=== PATIENT | female | born 1945 | race Two or more races ===

== ENCOUNTER 2017-12-28 08:30 | Outpatient (CLI) | payer OTHER ==
[~2017-12-28 08:30] MED LIST: SYNTHROID100 MCG PO; SYNTHROID75 MCG PO
== END 2017-12-28 09:07 | disposition home or self-care (01) ==
LOC: SONOGRAMA 08:30 → MAMO-SONO 12-29 08:15
DX: R10.84 Generalized abdominal pain (principal); K57.30 Diverticulosis of large intestine without perforation or abscess without bleeding; R10.13 Epigastric pain; K30 Functional dyspepsia

== ENCOUNTER 2018-01-07 09:02 | Outpatient (CLI) | payer OTHER | END 2018-01-07 09:22 | disposition home or self-care (01) | LOC: TOM 09:02 | DX: R10.13 Epigastric pain (principal) | CPT/HCPCS: 74177; Q9965 ==

== ENCOUNTER 2019-02-15 07:16 | Outpatient (CLI) | payer OTHER | END 2019-02-15 07:20 | disposition home or self-care (01) | LOC: SONOGRAMA 07:16 → MAMO-SONO 09:45 | DX: R10.13 Epigastric pain (principal) ==

== ENCOUNTER 2019-02-20 07:14 | Outpatient (CLI) | payer OTHER | END 2019-02-20 10:21 | disposition home or self-care (01) | LOC: NUCLEAR 07:14 | DX: R10.13 Epigastric pain (principal) | CPT/HCPCS: 78227; A9537 ==

== ENCOUNTER 2021-12-16 08:16 | Outpatient (CLI) | payer OTHER | END 2021-12-16 08:18 | disposition home or self-care (01) | LOC: SONOGRAMA 08:16 | PROVIDERS: ATTEND Internal Medicine Gastroenterology | DX: R10.13 Epigastric pain (principal) ==

== ENCOUNTER 2021-12-16 09:10 | Outpatient (CLI) | payer OTHER | END 2021-12-16 09:11 | disposition home or self-care (01) | LOC: LAB 09:10 | PROVIDERS: ATTEND Internal Medicine Gastroenterology | DX: R10.13 Epigastric pain (principal) ==

== ENCOUNTER 2023-01-13 08:30 | Outpatient (CLI) | payer OTHER | END 2023-01-13 08:34 | disposition home or self-care (01) | LOC: SONOGRAMA 08:30 | PROVIDERS: ATTEND General Practice | DX: R10.9 Unspecified abdominal pain (principal); R10.2 Pelvic and perineal pain ==

== ENCOUNTER 2025-01-25 08:52 | Outpatient (CLI) | payer OTHER | END 2025-01-25 08:58 | disposition home or self-care (01) | LOC: TOM 08:52 | PROVIDERS: ATTEND Internal Medicine Sports Medicine | DX: R10.32 Left lower quadrant pain (principal) | CPT/HCPCS: 74177; Q9965 ==